=== PATIENT | female | born 1940 | race Caucasian/White ===

== ENCOUNTER 2017-07-11 02:29 | Inpatient (IN) | payer MEDICARE ==
[2017-07-11] MEDS ORDERED: Aspirin 300 MG Suppository ONE (02:44)
[2017-07-11 02:53] LABS: #Eosinphils 0.2 thou/uL (0.0-0.7); #Lymphocytes 1.3 thou/uL (1.20-3.40); #Monocytes 0.7 thou/uL (0.11-0.59); #Neutrophils 9.4 thou/uL (1.40-6.50); %Basophils 0.4 % (0.0-1.0); %Eosinophils 1.5 % (0.0-10.0); %Lymphocytes 10.8 % (21.0-51.0); %Monocytes 5.7 % (0.0-10.0); Hematocrit 40.5 % (36.0-47.0); Mean Platelet Volume 7.3 fL (7.4-10.4); Red Blood Cell (RBC) Count 4.24 mill/uL (4.20-5.40); White Blood Cell (WBC) Count 11.5 thou/uL (4.8-10.8)
[2017-07-11 02:59] LABS: PTT 26.4 SEC (22.9-36.1); Prothrombin Time 15.1 SEC (12.0-14.7)
[2017-07-11 03:19] LABS: Troponin I 0.015 ng/mL (< 0.028)
[2017-07-11 03:59] LABS: ALT (SGPT) 12 U/L (8-55); AST (SGOT) 19 U/L (5-34); Alkaline Phosphatase 86 U/L (40-150); Anion Gap 15 mmol/L (10-20); BUN (Urea Nitrogen) 14 mg/dL (9.8-20.1); Bilirubin, Total 0.4 mg/dL (0.2-1.2); CK (CPK) 274 U/L (29-168); Calc. Creatinine Clearance 0 mL/min (70-130); Calcium 11.2 mg/dL (7.8-10.44); Carbon Dioxide 25 mmol/L (23-31); Chloride 103 mmol/L (98-107); Estimated GFR-MDRD 57; Protein, Total 7.3 g/dL (6.0-8.3)
[2017-07-11 05:36] VITALS: BMI 28.0
[2017-07-11] MEDS ORDERED: Ondansetron HCl/PF 4 MG/2 ML Vial IVP PRN ×2 (05:39→09:04)
[2017-07-11] MEDS ORDERED: Acetaminophen 325 MG TAB PO PRN ×2 (05:39→09:04)
[2017-07-11] MEDS ORDERED: Ondansetron ODT 4 MG TAB SL PRN (05:39)
--- NOTE | 2017-07-11 08:28 | RAD ---
AP VIEW OF THE CHEST: INDICATION: History of desaturations and TIAs. FINDINGS: There is cardiomegaly with pulmonary vascular congestion. No airspace consolidation or pleural effu scott is evident. There is multilead AICD overlying the left chest wall. There is ACDF involving th e lower cervical spine. There is diffuse osteopenia. There is scattered degenerative change. IMPRESSION: Findings suggesting mild congestive heart failure. POS: H
--- NOTE | 2017-07-11 08:47 | CT ---
PRELIMINARY REPORT/[facility]/EMERGENCY AFTER HOURS PROCEDURE: EXAM: CT Head Without Intravenous Contrast CLINICAL HISTORY: 76 years old, female; AMS / memory loss; Confusion or disorientation; Patient HX: Possible stroke TECHNIQUE: Axial computed tomography images of the head/brain without intravenous contrast. COMPARISON: No relevant prior studies available. FINDINGS: Brain: Periventricular white matter areas of decreased density which are likely secondary to chronic ischemia from microvascular change. Diffuse cerebral atrophy. Bilateral basal ganglia calcification s. No mass effect or midline shift. No extra-axial fluid collection. No hemorrhage. Ventricles: Ventricular prominence in this patient with diffuse cerebral atrophy. Bones/joints: No fracture. Incomplete fusion of the posterior arch of C1 which is a normal congenita l variant. Soft tissues: Unremarkable. Vasculature: Arterial calcification. Sinuses: No significant disease of the paranasal sinuses. Mastoid air cells: No mastoiditis. IMPRESSION: 1. No acute intracranial findings. 2. Age-related periventricular white matter changes. 3. Diffuse cerebral atrophy. Thank you for allowing us to participate in the care of your patient. Dictated and Authenticated by: Jayesh Sanches MD 07/11/2017 3:04 AM Central Time ([place] \T\ [place]) FINAL REPORT NONCONTRAST CT OF THE BRAIN: INDICATIONS: Concern for possible stroke. COMPARISON: None. FINDINGS: No acute infarct, hemorrhage, or hydrocephalus is present. There is chronic small vessel white yoli er ischemic change. The septum pellucidum and third ventricle are midline. No definite acute infar ct, hemorrhage, or hydrocephalus is present. IMPRESSION: No definite acute intracranial abnormality demonstrated. I agree with the preliminary report provided. POS: [facility]
[2017-07-11] MEDS ORDERED: Aspirin 300 MG Suppository PR SCH ×2 (09:00→21:00)
[2017-07-11] MEDS ORDERED: Ondansetron ODT 4 MG TAB PO PRN (09:04)
[2017-07-11] MEDS ORDERED: Bisacodyl 10 MG SUPP PR PRN (09:04)
[2017-07-11] MEDS ORDERED: Senokot 8.6 MG TAB PO PRN (09:04)
[2017-07-11] MEDS ORDERED: Dextrose 5% in Water 1,000 ML IV PRN (09:08)
[2017-07-11] MEDS ORDERED: Insulin Regular 300 UNITS/3 ML VIAL SC PRN (09:08)
[2017-07-11] MEDS ORDERED: Dextrose 50% Abboject 50 ML SYRINGE SLOW IVP PRN (09:08)
[2017-07-11] MEDS ORDERED: Nitroglycerin 2% Ointment 1 INCH/1 GM Packet TOP PRN (09:09)
[2017-07-11] MEDS ORDERED: Labetalol HCl 100 MG/20 ML VIAL SLOW IVP PRN (09:09)
[2017-07-11] MEDS ORDERED: Diabetic Tussin 200 MG/10 ML UDCUP PO PRN (09:09)
[2017-07-11] MEDS ORDERED: Loratadine 10 MG TAB PO PRN (09:09)
[2017-07-11] MEDS ORDERED: Polyethylene Glycol 3350 17 GM Packet PO PRN (09:09)
[2017-07-11] MEDS ORDERED: Eucerin (Mineral Oil/Petrolatum,White) 30 gm Jar TOP PRN (09:09)
[2017-07-11] MEDS ORDERED: Dextrose 5 % And 0.9 % NaCl 1,000 ML IV SCH (09:15)
[2017-07-11] MEDS ORDERED: Furosemide 20 MG/2 ML VIAL SLOW IVP SCH (09:15)
[2017-07-11] MEDS ORDERED: Heparin 5,000 UNITS/ML VIAL SC SCH (09:15)
[2017-07-11] MEDS: Dextrose 5 % And 0.9 % NaCl 1,000 ML IV SCH (09:45)
--- NOTE | 2017-07-11 10:23 | HP ---
DATE OF ADMISSION: 07/11/2017 PRIMARY CARE PHYSICIAN: Miguel Ángel Dominguez M.D. PRIMARY CLASSROOM MONITOR: Rip Muñoz M.D. PRIMARY NEUROLOGIST: The patient was recently evaluated by Dr. Javier Cagle at [facility]. CHIEF COMPLAINT: New focal neurologic deficit. HISTORY OF PRESENT ILLNESS: The patient is a 76-year-old white female with paroxysmal atrial fibril lation, coronary artery disease, diabetes mellitus type 2, hypertension, hyperlipidemia, and status post AICD, presented to the emergency room with new onset of left-sided weakness. The patient currently resides at nursing facility. On 02/21/2017, patient was admitted to [facility] for TIA. CT angiogram of the head was unremarkable. CT angiogram of the neck showed possible 50% stenosis of the proximal left ICA. Echocardiogram showed normal left ventricular systolic function with moderate mitral regurgita tion. MRI could not be done due to pacemaker. Anticoagulation was recommended; however, she decide d to discuss with Dr. Muñoz as outpatient. Post-discharge, she was evaluated by Neurology, Dr. Jose Maria jalloh on 03/20/2017. Dr. Cagle recommended to continue aspirin 81 mg daily, which was started at [facility]. At this time, no information is available from the patient due to current cognition. History obtain ed from the ER record. I talked to the daughter, Ludivina over the phone who was unaware that the patie nt is in the hospital. The patient was brought into the Emergency Room around 02:30 a.m. earlier today with new motor defic it and facial weakness. She had flaccid weakness of the left upper and left lower extremity along w ith facial droop. Her eyes were deviated to the right. There was no bladder or bowel incontinence reported. No nausea, vomiting, headache or seizure reported. CT scan of the brain showed diffuse c erebral atrophy with age-related periventricular white matter changes. EKG showed paced rhythm. Sh candice received aspirin rectal in the emergency room. She failed swallowing evaluation in the ER. Her N IH score in the emergency room was 22. PAST MEDICAL HISTORY: Obtained from [facility] records. 1. Recent TIA as discussed above. 2. Paroxysmal atrial fibrillation, status post ablations. 3. Status post AICD. 4. Chronic back pain, followed by Pain Clinic at [facility]. 5. DJD. 6. Coronary artery disease with last cardiac catheterization at this facility in 2011. 7. Diabetes mellitus type 2 on oral hypoglycemics. 8. Hyperlipidemia. 9. Hypertension. 10. Hypothyroidism. PAST SURGICAL HISTORY: 1. Back surgery. 2. Breast biopsy. 3. Cardiac catheterization. 4. Colonoscopy. 5. Cardiac defibrillator placement. 6. Joint replacement. 7. Knee surgery. 8. Eye surgery. 9. Colposcopy. ALLERGIES: Patient is allergic to FENTANYL. FAMILY HISTORY: Positive for heart disease in both the parents. SOCIAL HISTORY: She resides at the nursing facility, ambulates with the help of a walker. No histo ry of smoking, alcohol or drug use. The patient currently resides at [facility]. She lost her 90 year old this February of 2017. HOME MEDICATIONS: Cannot be obtained from the patient due to current cognitive status. However, navjot kohler was discharged on the following medications from [facility]; 1. Aspirin 81 mg daily. 2. Carvedilol 6.25 mg b.i.d. 3. Cymbalta 30 mg daily. 4. Lasix 40 mg twice a day. 5. Levothyroxine 25 mcg daily. 6. Lisinopril 40 mg daily. 7. Metformin 1000 mg twice a day. 8. Potassium chloride 20 mEq twice a day. 9. Omeprazole 20 mg daily. REVIEW OF SYSTEMS: Cannot be obtained from the patient due to current cognitive status. PHYSICAL EXAMINATION: VITAL SIGNS: On ER arrival showed temperature 98.9, respirations 16, pulse 79, blood pressure of 14 6/90 with O2 saturation 89% on room air. She was placed on nonrebreather initially. She is current ly requiring oxygen at 4 liters. GENERAL: A 76-year-old female with flaccid left-sided weakness and right-sided gaze. There is left lower half of the face weakness. HEENT: As discussed above. Dry mucous membranes. NECK: Supple, no JVD, no neck stiffness. LUNGS: Showed bibasilar crackles with scattered rhonchi. HEART: S1, S2 present. Regular rate and rhythm, 2/6 systolic murmur over the mitral area. ABDOMEN: Soft, nontender, bowel sounds present. EXTREMITIES: Trace edema in bilateral lower extremities. NEUROLOGIC: As discussed above. Exam was limited due to current cognitive status. PSYCHIATRIC: The patient is alert with some intermittent confusion. Again, not much information av ailable. SKIN: Warm and dry. LYMPH NODES: No palpable lymph nodes in the neck. PERIPHERAL VASCULAR: Radial pulses palpable bilaterally. MUSCULOSKELETAL: No joint swelling or tenderness. LABORATORY DATA AND IMAGIN. CBC showed WBC 11.5, hemoglobin 13.3, hematocrit 40.5, and platelet 151. 2. INR 1.2. 3. Chemistries showed sodium 138, potassium 4.7, chloride 103, bicarbonate 25, BUN 14, creatinine 0 .95, glucose of 208. 4. Cardiac enzymes were normal. 5. EKG and chest x-ray by my review as discussed above. CT scan of the brain by my review as discu ssed above. IMPRESSION: 1. 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 Suspected embolic due to history of atrial fibrillation. 2. Recent transient ischemic attack requiring hospitalization at [facility], c urrently taking 81 mg aspirin. 3. Acute hypoxic respiratory failure, probably secondary to acute on chronic diastolic heart failur e. 4. Diabetes mellitus type 2. 5. Hypertension. 6. Hyperlipidemia. 7. Hypothyroidism. 8. Gastroesophageal reflux disease. 9. Anxiety and depression. 10. Chronic pain syndrome. 11. Chronic anemia. 12. Status post automatic implantable cardioverter defibrillator. 13. Chronic kidney disease, stage 3. 14. Chronic hypercalcemia. Her calcium 4 months ago was 10.7. PLAN: The patient will be monitored in the stroke unit. We will continue rectal aspirin that was s tarted earlier in the emergency room. We will get stroke workup. MRI not possible due to AICD. Ne urology and Cardiology consultation. We will resume other home medications once able to tolerate p. o. Stroke Team consult. We will repeat CT scan of the brain in a.m. CODE STATUS: FULL CODE. Surrogate decision maker is the daughter, Ludivina, phone number [phone]. Plan of care was discussed with the DPOA over the phone. She was unaware that [facility]. She stated understanding.
[2017-07-11 12:18] LABS: Anion Gap 16 mmol/L (10-20); BUN (Urea Nitrogen) 12 mg/dL (9.8-20.1); BUN/Creatinine Ratio 14.63; Calc. Creatinine Clearance 65 mL/min (70-130); Carbon Dioxide 23 mmol/L (23-31); Chloride 100 mmol/L (98-107); Cholesterol 156 mg/dl (< 200 Desired); Estimated GFR-MDRD 68; LDL Cholesterol, Calculated 101 mg/dL; Magnesium 1.4 mg/dL (1.6-2.6); Phosphorus 3.2 mg/dL (2.3-4.7)
[2017-07-11 12:31] LABS: Troponin I 0.061 ng/mL (< 0.028)
--- NOTE | 2017-07-11 12:37 | ULT ---
CAROTID DUPLEX ULTRASOUND: INDICATIONS: History of acute CVA. FINDINGS: There is mild atherosclerotic plaque involving the internal carotid arteries bilaterally. The peak systolic velocity of the right CCA was 48.1 cm per second and the left was 45.1 cm per seco nd. The peak systolic velocity of the right ICA was 39.7 cm per second and the left was 37.2 cm per seco nd. There is antegrade flow within both vertebral arteries. IMPRESSION: No hemodynamically significant stenosis. POS: [facility]
[2017-07-11] MEDS ORDERED: Magnesium Sulfate 4 GM in Sodium Chloride 0.9% 250 ML 250 ML IVPB SCH (12:45)
[2017-07-11] MEDS: Nitroglycerin 2% Ointment 1 INCH/1 GM Packet TOP SCH ×2 (12:51→23:05)
[2017-07-11] MEDS: Acetaminophen 650 MG Suppository PR PRN (12:51)
--- NOTE | 2017-07-11 13:38 | CON ---
DATE OF CONSULTATION: 07/11/2017 REASON FOR CONSULTATION: Recent cerebrovascular accident. PRIMARY ROTARY BAR OPERATOR: Dr. Rip Muñoz HISTORY OF PRESENT ILLNESS: Ms. Nolan is a 76-year-old woman who has undergone atrial fibrillation ablation x2 in the past. She has been off of Coumadin therapy. She recently presented with difficulty getting out of bed. She summoned 911. She was found to have left-sided weakness. She has no previous history of CVA. PAST MEDICAL HISTORY: Recent transient ischemic attack, paroxysmal atrial fibrillation status post ablation x2, AICD placement, DJD, chronic back discomfort, diabetes mellitus, hypertension, hyperlipidemia, colonoscopy, joint replacement, knee surgery, eye surgery. ALLERGIES: FENTANYL. SOCIAL HISTORY: No current tobacco or alcohol use. HOME MEDICATIONS: Aspirin, carvedilol, Cymbalta, Lasix, levothyroxine, lisinopril, metformin, potassium, and omeprazole. REVIEW OF SYSTEMS: Ten-point review of systems is reviewed and as above, otherwise negative. PHYSICAL EXAMINATION: VITAL SIGNS: Blood pressure 172/115, pulse 101, temperature 97.8. GENERAL: Patient is a pleasant female who is in no acute distress. The patient appears her stated age. NEUROLOGIC: The patient is alert and oriented times 3 with no focal neurologic deficits. HEENT: Sclerae without icterus. Mouth has moist mucous membranes with normal pallor. NECK: No JVD. Carotid upstroke brisk. No bruits bilaterally. LUNGS: Clear to auscultation with unlabored respirations. BACK: No scoliosis or kyphosis. CARDIAC: Regular rate and rhythm with normal S1 and S2. No S3 or S4 noted. No significant rubs, murmurs, thrills, or gallops noted throughout the precordium. PMI is not displaced. There is no parasternal heave. ABDOMEN: Soft, nontender, nondistended. No peritoneal signs present. No hepatosplenomegaly. No abnormal striae. EXTREMITIES: 2+ femoral and 2+ dorsalis pedis pulses. No cyanosis, clubbing, or edema. SKIN: No gross abnormalities. ICD interrogation negative for episodes of atrial fibrillation. IMPRESSION: 1. Recent cerebrovascular accident. 2. History of paroxysmal atrial fibrillation, status post ablation. RECOMMENDATIONS: Ms. Victorias etiology likely is from the left atrial appendage. There may have been stunning or standstill of the left atrial appendage after ablation in the past. She has had a recent TIA followed by a CVA. She would likely benefit from anticoagulation therapy. We will discuss with Neurology on anticoagulation treatment. Otherwise, I have no further recommendations. ANABELL
--- NOTE | 2017-07-11 14:22 | CT ---
NONCONTRAST CT OF THE BRAIN: INDICATION: CVA. COMPARISON: Prior exam dated 07/11/17. FINDINGS: Since the comparison examination, there has been loss of the reyez-white differentiation involving th e right insular cortex, right frontal lobe cortex, portions of the anterior right temporal lobe, and anterior right parietal lobe in a right MCA distribution consistent with changes of acute infarct. No acute intracranial hemorrhage is evident. Septum pellucidum and 3rd ventricle are midline. Mil d chronic small-vessel white matter ischemic change is again noted. Scattered vascular calcificatio ns involving the intracranial vasculature appear similar. The skull and extracranial soft tissues a re unremarkable. IMPRESSION: 1. Interval development of loss of the reyez-white differentiation involving the right middle cerebr al artery distribution consistent with a large right middle cerebral artery infarct. This involves portions of the posterior and lateral right frontal lobe, right insular cortex, anterior right tempo ral lobe, and anterior right parietal lobe. 2. Findings were called to Dr. Lim at 1:30 p.m. on 07/11/17. CODE CR POS: [facility]
[2017-07-11 15:55] LABS: Troponin I 0.093 ng/mL (< 0.028)
[2017-07-11] MEDS: manNITOL 20% 250 ML IVPB SCH (20:30)
[2017-07-11] MEDS: Docusate 100 MG CAP PO SCH (21:42)
[2017-07-11] MEDS: Atorvastatin Calcium 20 MG TAB PO SCH (21:42)
[2017-07-11] MEDS: Famotidine/PF 20 mg/2ml Vial SLOW IVP SCH (21:42)
[2017-07-11] MEDS: Famotidine 20 MG TAB PO SCH (21:45)
[2017-07-11] MEDS: Heparin 5,000 UNITS/ML VIAL SC SCH (21:48)
[2017-07-12] MEDS: manNITOL 20% 250 ML IVPB SCH ×2 (04:52→12:08)
[2017-07-12] MEDS: Nitroglycerin 2% Ointment 1 INCH/1 GM Packet TOP SCH (04:55)
--- NOTE | 2017-07-12 05:07 | CON ---
DATE OF CONSULTATION: 07/11/2017 REFERRING PROVIDER: Agusitn Lim MD REASON FOR CONSULTATION: Left hemiparesis, dysarthria. HISTORY OF PRESENT ILLNESS: Ms. Nolan is a pleasant 76-year-old female, who has been co nsulted for evaluation of left hemiparesis and dysarthria, is obtained from patient's medical chart as well as patient's daughter who was present at bedside. Patient has a history of hypertension, di abetes, coronary artery disease, paroxysmal atrial fibrillation, status post AICD placement. She re sides at the nursing facility and over there she was noted to have sudden onset of left-sided weakne ss on last night, which prompted them to bring her to the [place] [facility], was more than 4 -1/2 hours. So, for this reason TPA was not given. Apparently, she has a history of TIA in February of this year. She was admitted to the [facility]. It was felt that her episode of trans ient ischemic attacks, likely secondary to paroxysmal atrial fibrillation. She was offered anticoag ulation therapy; however, she at that time had refused and thus she was started on aspirin 81 mg jeannie ly for secondary stroke prevention. She had done well since that time until last night, but she was noted to be weak on her left side and thus she was brought to the [place] [facility]. Accor ding to the nurse, the patient has noted gradual decline in her neurological status over the past 12 hours. She is now more lethargic and has a gaze deviation toward the right side. She is also flac kelly in the left upper and left lower extremity. PAST MEDICAL HISTORY: Significant for hypertension, hyperlipidemia, diabetes, coronary artery disea se, paroxysmal atrial fibrillation, status post ablations and recent TIA and chronic back pain, dege nerative joint disease, and hypothyroidism. PAST SURGICAL HISTORY: Significant for back surgery, breast biopsy, cardiac catheterization, colono scopy, AICD placement, joint replacement, knee surgery, eye surgery. CURRENT MEDICATIONS: Please review MAR. ALLERGIES: Include FENTANYL. FAMILY HISTORY: Significant for heart disease in both parents. SOCIAL HISTORY: She is currently residing at the custodial facility. She ambulates with the hel p of a walker. She does not smoke cigarettes, drink alcohol or use illicit drugs. REVIEW OF SYSTEMS: Positive for headache on the right frontal temporal region. She denies chest pa in, palpitation, difficulty with breathing. PHYSICAL EXAMINATION: VITAL SIGNS: Blood pressure of 144/86, pulse of 88, temperature of 97.5, respirations of 18, O2 sat s of 97% on room air. GENERAL: Somewhat lethargic appearing, female, in no apparent distress. RESPIRATORY: Clear to auscultation bilaterally. CARDIOVASCULAR: Regular rate and rhythm. NEUROLOGIC: Mental status: The patient is lethargic appearing. She is able to respond to verbal s timuli and able to follow some simple commands. Speech and language mild to moderate dysarthric spe ech. Cranial nerves: Pupils are 3 mm and reactive. She has a right gaze deviation with a left hem ineglect. She does not blink to threat on the left side. There is left facial droop noted. Tongue and uvula could not be assessed. Motor exam showed flaccid left upper and left lower extremity; le ft upper and left lower extremity is 0/5, right upper and right lower extremity is 5/5. Sensory: S ensation is absent in the left upper and left lower extremity. Gait and Romberg coordination could not be tested. LABORATORY DATA: Reviewed; which included CBC, coag panel, CMP, CPK, CK-MB, troponin, BNP, and lipi d profile, which is significant for WBC of 11.5, PT of 15.1, INR of 1.2, PTT of 26.4. Sodium of 135 , glucose of 184, magnesium of 1.4, CK-MB of 10.4, troponin of 0.093. BNP of 852.7, total cholester ol of 156, LDL of 101, HDL of 43, otherwise unremarkable. IMAGING STUDIES: CT head without contrast done earlier in the day today was reviewed, which showed hypodensity involving the right middle cerebral artery. This involves portions of the posterior and lateral right frontal lobe, right insular cortex and anterior right temporal lobe and anterior righ t parietal lobe. IMPRESSION: 1. Large right middle cerebral artery distribution ischemic infarct. 2. Left hemiparesis, due to #1. 3. Cerebral edema secondary to #1. ASSESSMENT AND PLAN: Ms. Nolan is a pleasant 76-year-old female with multiple medical p roblems, who presented with the acute onset of left hemiparesis. She has noted gradual decline sinc e being admitted to the hospital where she now has a gaze deviation towards the right with the left hemineglect and left hemiparesis. Her CT scan does show large area of right middle cerebral artery distribution ischemic infarct. At this time, I would recommend holding off anticoagulation therapy due to high risk for bleeding with a large area of the stroke involved. I would recommend continuin g using aspirin 81 mg daily for secondary stroke prevention. I would recommend obtaining CT head wi thout contrast on tomorrow morning. I have started on mannitol 50 grams IV q.8 hours total of 3 dos es due to her becoming more lethargic and worsening of her symptoms which suggest cerebellar edema. I had a long discussion with the patient's daughter as well as patient's another daughter who was p resent over the phone. I have explained them the extent of the stroke as well as prognosis. I have explained that the risk of edema peaks at 72 hours; this can result in worsening of symptoms includ ing brain herniation, which can affect breathing, heart rate and blood pressure and alertness and co nsciousness. I have explained that given the severity of the stroke, anticoagulation therapy at thi s point should be avoided unless for 48 hours, I have explained that her prognosis is guarded to poo r at this time. I have also discussed with them about DNR status. Daughter mentioned that they jonh l discuss among themselves to decide whether to make her DNR. I have spent approximately 30 minutes of total visit time for above discussion and counseling. Thank you for the consultation.
[2017-07-12 05:23] LABS: #Basophils 0.1 thou/uL (0.0-0.2); #Monocytes 0.8 thou/uL (0.11-0.59); #Neutrophils 9.4 thou/uL (1.40-6.50); %Basophils 0.5 % (0.0-1.0); %Eosinophils 0.2 % (0.0-10.0); %Lymphocytes 9.2 % (21.0-51.0); Hematocrit 45.3 % (36.0-47.0); Mean Platelet Volume 7.5 fL (7.4-10.4); Red Blood Cell (RBC) Count 4.75 mill/uL (4.20-5.40); White Blood Cell (WBC) Count 11.3 thou/uL (4.8-10.8)
[2017-07-12 05:49] LABS: Anion Gap 18 mmol/L (10-20); BUN (Urea Nitrogen) 14 mg/dL (9.8-20.1); BUN/Creatinine Ratio 15.73; Calc. Creatinine Clearance 60 mL/min (70-130); Carbon Dioxide 22 mmol/L (23-31); Chloride 101 mmol/L (98-107); Estimated GFR-MDRD 62; Magnesium 2.3 mg/dL (1.6-2.6); Phosphorus 3.3 mg/dL (2.3-4.7)
--- NOTE | 2017-07-12 09:06 | PRG ---
DATE OF SERVICE: 07/12/2017 Ms. Nolan's status is unchanged. She recently had a repeat CT scan that did show a large infarct involving the right middle cerebral distribution consistent with right middle cerebral artery infarc t involving the posterior and lateral right frontal lobe. PHYSICAL EXAMINATION: VITAL SIGNS: Blood pressure 187/96, pulse 93, temperature 98.3. LUNGS: Clear to auscultation. CARDIAC: Regular rate and rhythm. ABDOMEN: Soft, nontender, nondistended. EXTREMITIES: No edema. NEURO: Marked weakness to the left upper and left lower extremity with left facial droop.. IMPRESSION: 1. Large cerebrovascular accident. 2. History of paroxysmal atrial fibrillation, status post ablation. RECOMMENDATIONS: At this point, we will defer anticoagulation therapy to Neuro. There is concern f or progression of a large right middle cerebral artery conversion to a hemorrhage. May need to wait several days prior to starting anticoagulation therapy. Again, this is likely related to atrial fi brillation and atrial stunning versus atrial appendage standstill. The patient also developed a non sustained VT overnight which is likely related to recent infarct. We will continue to monitor close ly.
[2017-07-12] MEDS: Famotidine/PF 20 mg/2ml Vial SLOW IVP SCH ×2 (09:08→20:10)
[2017-07-12] MEDS: Acetaminophen 650 MG Suppository PR PRN (09:08)
[2017-07-12] MEDS: Famotidine 20 MG TAB PO SCH ×2 (09:09→19:52)
[2017-07-12] MEDS: Docusate 100 MG CAP PO SCH ×2 (09:09→19:52)
[2017-07-12] MEDS: Heparin 5,000 UNITS/ML VIAL SC SCH (09:09)
[2017-07-12] MEDS: Dextrose 5 % And 0.9 % NaCl 1,000 ML IV SCH (11:33)
[2017-07-12] MEDS: Insulin Regular 300 UNITS/3 ML VIAL SC PRN (11:33)
[2017-07-12] MEDS ORDERED: Labetalol HCl 100 MG/20 ML VIAL SLOW IVP PRN (12:27)
[2017-07-12] MEDS ORDERED: Metoprolol Tartrate 5 MG/5 ML VIAL IVP SCH ×2 (12:30→14:00)
--- NOTE | 2017-07-12 14:21 | CT ---
CT BRAIN WITHOUT CONTRAST: Date: 07/12/17 HISTORY: Worsening, acute CVA. FINDINGS: Comparison made with exam of previous day. There has been interval increase in size of the acute right MCA infarction with hemorrhagic transfor mation since the previous day's exam. There is increased edema and mass effect on the right lateral ventricle. No midline shift is seen. IMPRESSION: Interval progression and hemorrhagic conversion of the large right MCA infarction since the previous day. This study was interpreted in consultation with Dr. Alley Pearce (neuroradiologist), who concurs. Discussed over the telephone with Dr. Agustin Lim at 1310 hours. CODE CR. POS: [facility]
[2017-07-12] MEDS: Metoprolol Tartrate 5 MG/5 ML VIAL IVP SCH ×2 (16:07→23:21)
--- NOTE | 2017-07-12 17:44 | PDOC.PN ---
- Subjective Encounter Start Date: 07/12/17 Encounter Start Time: 11:00 Patient seen and examined. Rt sided headache. Somnolent No overnight events - Objective Resuscitation Status: Resuscitation Status DNR:Do Not Resuscitate MAR Reviewed: Yes Vital Signs & Weight: Vital Signs (12 hours) Temp Pulse Resp BP Pulse Ox 07/12/17 16:40 95 07/12/17 15:49 96.4 F L 103 H 16 166/110 H 92 L 07/12/17 11:51 98.7 F 98 18 172/106 H 94 L 07/12/17 10:53 96 20 94 L 07/12/17 08:50 98.0 F 95 16 95 07/12/17 08:40 98.0 F 95 16 156/90 H 96 07/12/17 06:59 95 07/12/17 06:58 92 16 95 Weight Admit Weight 158 lb 8 oz Weight 158 lb 8 oz I&O: 07/11/17 07/12/17 07/13/17 06:59 06:59 06:59 Intake Total 1626 Output Total 1825 Balance -199 Result Diagrams: 07/12/17 04:30 07/12/17 04:30 Additional Labs: Accuchecks 07/12/17 07/12/17 07/11/17 17:17 11:01 20:34 POC Glucose 166 H 203 H 170 H Radiology Reviewed by me: Yes (CT brain - Hemorrhagic conversion) EKG Reviewed by me: Yes (Tele SR, NSVT earlier) Phys Exam - Physical Examination Constitutional: NAD Respiratory: no wheezing, no rales, no rhonchi Symmetrical, Dec AE at bases Cardiovascular: RRR, no rub no heaves/pulsations Gastrointestinal: soft, non-tender, no distention, positive bowel sounds Musculoskeletal: no edema Neuro - Left sided flaccid weakness, facial droop Psychiatric: A&O x 3 Deviation from normal: Somnolent. Responds to verbal commands Dx/Plan - Plan cont current plan of care, plan discussed w/ family (they stated understanding) , DVT proph w/SCDs IMPRESSION: 1. 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 Suspected embolic due to history of atrial fibrillation. 2. Recent transient ischemic attack. 3. Acute hypoxic respiratory failure secondary to acute on chronic diastolic heart failure. 4. Diabetes mellitus type 2. on sliding scale. 5. Hypertension. 6. Hyperlipidemia. 7. Hypothyroidism. 8. Gastroesophageal reflux disease. 9. Anxiety and depression. 10. Chronic pain syndrome. 11. Chronic anemia. 12. Status post automatic implantable cardioverter defibrillator. 13. Chronic kidney disease, stage 3. 14. Chronic hypercalcemia. PLAN: * Consult Neurosurgery * On Mannitol * DC Heparin SQ and ASA due to hemorrhagic conversion * AM labs * Cont to monitor * Cardiology/Neurology following Review of Systems - Review of Systems Cardiovascular: negative: Chest Pain, Palpitations, Orthopnea, Paroxysmal Noc. Dyspnea, Edema, Light Headedness, Other Gastrointestinal: negative: Nausea, Vomiting, Abdominal Pain, Diarrhea, Constipation, Melena, Hematochezia, Other - Medications/Allergies Allergies/Adverse Reactions: Allergies Allergy/AdvReac Type Severity Reaction Status Date / Time No Known Allergies Allergy Verified 07/11/17 06:21 Medications: Current Medications Acetaminophen (Tylenol) 650 mg KY Q4H PRN PRN Reason: Headache/Fever or Pain Last Admin: 07/12/17 09:08 Dose: 650 mg Acetaminophen (Tylenol) 650 mg PO Q4H PRN PRN Reason: Headache/Fever or Pain Albuterol/Ipratropium (Duoneb) 3 ml NEB [id number] [facility] Last Admin: 07/12/17 14:45 Dose: Not Given Albuterol/Ipratropium (Duoneb) 3 ml NEB [id number] PRN PRN Reason: SOB &/or Wheezing Atorvastatin Calcium (Lipitor) 20 mg PO HS [facility] Last Admin: 07/11/17 21:42 Dose: 20 mg Bisacodyl (Dulcolax) 10 mg KY Q24H PRN PRN Reason: Constipation Dextrose/Water (Dextrose 50%) 25 gm SLOW IVP PRN PRN PRN Reason: Hypoglycemia Docusate Sodium (Colace) 100 mg PO BID [facility] Last Admin: 07/12/17 09:09 Dose: Not Given Enalaprilat (Vasotec) 1.25 mg SLOW IVP BID [facility] Famotidine (Pepcid) 20 mg PO BID [facility] Last Admin: 07/12/17 09:09 Dose: Not Given Famotidine (Pepcid) 20 mg SLOW IVP Q12HR [facility] Last Admin: 07/12/17 09:08 Dose: 20 mg Glucagon (Glucagon) 1 mg IM PRN PRN PRN Reason: Hypoglycemia Guaifenesin (Robitussin Sf) 200 mg PO Q4H PRN PRN Reason: Cough Hydralazine HCl (Apresoline) 10 mg SLOW IVP Q4H PRN PRN Reason: SBP GREATER THAN 160 Dextrose/Water (D5w) 1,000 mls @ 0 mls/hr IV .Q0M PRN; As Directed PRN Reason: Hypoglycemia Dextrose/Sodium Chloride (D5 0.9% Ns) 1,000 mls @ 30 mls/hr IV .Q24H [facility] Last Admin: 07/12/17 11:33 Dose: 1,000 mls Insulin Human Regular (Humulin R) 0 units SC .MILD SLIDING SCALE PRN PRN Reason: Mild Correctional Scale Last Admin: 07/12/17 11:33 Dose: 3 unit Insulin Human Regular (Humulin R) 0 units SC .BEDTIME SLIDING SC PRN PRN Reason: Bedtime Correctional Scale Labetalol HCl (Normodyne) 10 mg SLOW IVP Q4H PRN PRN Reason: Systolic BP > 160 Loratadine (Claritin) 10 mg PO DAILYPRN PRN PRN Reason: Sinus Symptoms Metoprolol Tartrate (Lopressor) 5 mg IVP Q6HR [facility] Last Admin: 07/12/17 16:07 Dose: 5 mg Mineral Oil/White Petrolatum (Eucerin Cream) 0 gm TOP BIDPRN PRN PRN Reason: Dry Skin Nitroglycerin (Nitro-Bid 2% Ointment) 0.5 inch TOP Q8H PRN PRN Reason: Sbp Greater Than 190 Ondansetron HCl (Zofran Odt) 4 mg PO Q6H PRN PRN Reason: Nausea/Vomiting Ondansetron HCl (Zofran) 4 mg IVP Q6H PRN PRN Reason: Nausea/Vomiting Polyethylene Glycol (Miralax) 17 gm PO DAILYPRN PRN PRN Reason: Constipation Senna (Senokot) 2 tab PO HSPRN PRN PRN Reason: Constipation Sodium Chloride (Flush - Normal Saline) 10 ml IVF Q12HR [facility] Last Admin: 07/12/17 09:09 Dose: Not Given Sodium Chloride (Flush - Normal Saline) 10 ml IVF PRN PRN PRN Reason: Saline Flush
[2017-07-12] MEDS: Atorvastatin Calcium 20 MG TAB PO SCH (20:09)
[2017-07-12] MEDS: Enalaprilat Dihydrate 1.25 MG/ML VIAL SLOW IVP SCH (20:09)
[2017-07-13] MEDS: Labetalol HCl 100 MG/20 ML VIAL SLOW IVP PRN ×2 (02:23→17:08)
[2017-07-13] MEDS: Metoprolol Tartrate 5 MG/5 ML VIAL IVP SCH ×3 (04:34→18:51)
[2017-07-13] MEDS: Insulin Regular 300 UNITS/3 ML VIAL SC PRN ×3 (04:55→17:02)
[2017-07-13 05:25] LABS: #Monocytes 0.9 thou/uL (0.11-0.59); #Neutrophils 10.3 thou/uL (1.40-6.50); %Basophils 0.2 % (0.0-1.0); %Eosinophils 0.2 % (0.0-10.0); %Lymphocytes 8.4 % (21.0-51.0); %Monocytes 7.2 % (0.0-10.0); Hematocrit 42.9 % (36.0-47.0); Mean Platelet Volume 7.5 fL (7.4-10.4); Red Blood Cell (RBC) Count 4.53 mill/uL (4.20-5.40); White Blood Cell (WBC) Count 12.2 thou/uL (4.8-10.8)
[2017-07-13 06:34] LABS: Anion Gap 16 mmol/L (10-20); BUN (Urea Nitrogen) 15 mg/dL (9.8-20.1); BUN/Creatinine Ratio 16.13; Calc. Creatinine Clearance 56 mL/min (70-130); Carbon Dioxide 25 mmol/L (23-31); Chloride 102 mmol/L (98-107); Estimated GFR-MDRD 58; Magnesium 1.8 mg/dL (1.6-2.6)
--- NOTE | 2017-07-13 07:08 | CON ---
DATE OF CONSULTATION: 07/11/2017 DATE OF ADMISSION: 07/11/2017 HISTORY OF PRESENT ILLNESS: Ms. Nolan is a 76-year-old female who I saw in her room this morning. She presented yesterday to the [facility] with motor deficits and facial weak nesses on the left side. She has flaccid weakness of the left upper and lower extremity along with facial droop. Her eyes were deviated to the right and there is no bladder or bowel incontinence rep orted. She denies any nausea, vomiting, headache, or seizure. CT of the brain revealed diffuse cer ebral atrophy with age-related periventricular white matter changes. EKG showed paced rhythm. She received aspirin rectally in the emergency department. She failed a swallowing evaluation in the ER . Her NIH score in the emergency department was 22. She has a history of TIA in 02/2017, which she presented at [facility]. She was admitted to the stroke floor under the Medicine Service. To day, they got a repeat CT scan of the brain that showed an interval increase in the size of acute ri ght MCA infarction with hemorrhagic transformation since previous day's exam. She had increased lyssa ma and mass effect on the right lateral ventricle and no midline shift is seen. On exam, she does a nswer my questions appropriately. Her cranial nerves are intact. Her tongue deviates to the left. She is flaccid and has no sensation in the left upper extremity and left lower extremity; however, she has 4/5 strength in the right upper and lower extremity. She is able to follow my commands. Ne urosurgery was consulted because of the small hemorrhagic findings on CT scan. PAST MEDICAL HISTORY: TIA, paroxysmal atrial fibrillation, status post ablations, status post AICD, chronic back pain, degenerative disk disease, coronary artery disease with last cardiac catheteriza tion at [facility] in 2011; diabetes mellitus type 2 on oral hypoglycemics, hyperlipidemia, hypertension, hyperthyroidism. PAST SURGICAL HISTORY: Includes back surgery, breast biopsy, cardiac catheterization, colonoscopy, cardiac defibrillator placement, joint replacement, knee surgery, eye surgery, colonoscopy. ALLERGIES: Include FENTANYL. FAMILY HISTORY: Positive for heart disease in both parents. SOCIAL HISTORY: She resides at the nursing facility, ambulates with the help of a walker and has no history of smoking, alcohol, or drug abuse. She currently resides at [facility]. She recently lost her 90-year-old in 02/2017. HOME MEDICATIONS: 1. Aspirin 81 mg daily. 2. Carvedilol 6.25 mg p.o. b.i.d. 3. Cymbalta 30 mg daily. 4. Lasix 40 mg twice a day. 5. Levothyroxine 25 mcg daily. 6. Lisinopril 40 mg daily. 7. Metformin 1000 mg twice a day. 9. Potassium chloride 20 mEq twice a day. 10. Omeprazole 20 mg daily. REVIEW OF SYSTEMS: Cannot be obtained because the patient is somewhat confused. PHYSICAL EXAMINATION: VITAL SIGNS: Reviewed. latest vital signs, systolic blood pressures in the 170s. GENERAL: She is A and O x3. She is a 76-year-old female with flaccid left-sided weakness in the up per and lower extremities, right-sided gaze, and left lower half of the face is weak. HEENT: Normocephalic, atraumatic. Hearing intact. Moist mucous membranes. Eyes: Her pupils are equal and reactive to light. Extraocular muscles, she has a right gaze. Sclerae are white, anicter ic. NECK: Supple, no JVD, no neck stiffness. RESPIRATORY: The patient has bilateral symmetric chest rise, appears to be in no shortness of breat h. CARDIOVASCULAR: Regular rate and rhythm, normal S1 and S2 heart sounds, is paced, and has 2/6 systo lic murmur over the atrial area. No distal cyanosis or clubbing noted. EXTREMITIES: The patient has left-sided flaccid weakness in her left upper extremity and lower extr emity. She has 4/5 strength on the upper right extremity and lower right extremity. NEUROLOGIC: The patient is responsive to my questions appropriately. She has a GCS of 14. She mov es her right extremities to command, answers my questions appropriately. Her cranial nerves are int act. LABORATORY DATA: Shows INR of 1.2. Cardiac enzymes were normal. ASSESSMENT: Ms. Nolan is a 76-year-old female who is a DNR status and status post right-sided mid dle cerebral artery infarct with hemorrhagic transformation. PLAN: We will continue to do neuro checks overnight. If there is a major neurologic change, please contact the Neurosurgical Service, we will do a repeat CT scan of her brain in the morning and revi ew that for further recommendations. If there are any further questions, please feel free to contac t Neurosurgery.
[2017-07-13] MEDS ORDERED: Potassium Phosphate 15 MMOL in Sodium Chloride 0.9% 250 ML 250 ML IVPB SCH (07:30)
[2017-07-13] MEDS: Famotidine 20 MG TAB PO SCH (07:35)
[2017-07-13] MEDS: Docusate 100 MG CAP PO SCH ×2 (09:53→21:47)
[2017-07-13] MEDS: Famotidine/PF 20 mg/2ml Vial SLOW IVP SCH ×2 (09:55→21:22)
[2017-07-13] MEDS: Dextrose 5 % And 0.9 % NaCl 1,000 ML IV SCH (09:55)
[2017-07-13] MEDS: Enalaprilat Dihydrate 1.25 MG/ML VIAL SLOW IVP SCH ×2 (10:10→21:42)
--- NOTE | 2017-07-13 10:56 | PRG ---
DATE OF SERVICE: 07/13/2017 I personally interviewed and examined the patient and spoke with the daughter, reviewed imaging keri rds and agree with documentation of Brian Robb PA-C, dated 07/12/2017. SUBJECTIVE: Briefly, Ms. Nancy Nolan seen in [facility] on the with new left-sided weakness. She suffered a right middle cerebral artery infarct. Follow up CT imaging yesterday showed maturation of the infarct with potential hemorrhagic conversion. [place] to the mass effect on the brain, Neurosurgery was consulted to consider craniectomy. Ms. Nolan's vitals look stable. On examination, she wakes up to stimulus and answers questions wi th one or two words. She moves her right side well and follows commands on the right. She has a fl accid plegia on the left side. I have spent a long time talking to Ms. Nolan's daughter. She indicated to me that her mother wou ld not want a decompressive craniectomy, intubation, feeding tube or any aggressive measures to surv lili this stroke. She reiterated multiple times during our conversation. I told her I would follow up with the results of the CT images later today and give her those results in the morning and I wou ld check on her mother in the morning. If she remains adamant, neurosurgical intervention will be w anted. Then, we will sign off tomorrow.
--- NOTE | 2017-07-13 11:50 | CT ---
CT BRAIN: 07/13/2017 COMPARISON: 07/12/2017 FINDINGS: CT brain demonstrates a large area of hypodensity and mixed heterogenic density in the right posteri or frontal lobe, right insular cortex, and right temporal lobe. There appear to be areas of hyperde nsity within this, concerning for intraparenchymal hemorrhage in the large right MCA stroke. The ex tent of the stroke has not significantly changed. There does appear to be some increasing edema and approximately 4 mm of midline shift, from right to left. IMPRESSION: Large right middle cerebral artery distribution area of stroke with concern for intraparenchymal hem orrhage, There is midline shift from right to left. POS: [facility]
[2017-07-13] MEDS ORDERED: manNITOL 20% 250 ML IVPB SCH (14:00)
[2017-07-13] MEDS: Nitroglycerin 2% Ointment 1 INCH/1 GM Packet TOP SCH ×2 (14:19→21:19)
--- NOTE | 2017-07-13 14:34 | PDOC.PN ---
- Subjective Encounter Start Date: 07/13/17 Encounter Start Time: 14:00 Patient seen and examined. Somnolent. Was able to communicate earlier. No overnight events - Objective Resuscitation Status: Resuscitation Status DNR:Do Not Resuscitate MAR Reviewed: Yes Vital Signs & Weight: Vital Signs (12 hours) Temp Pulse Pulse Pulse Resp BP BP 07/13/17 11:47 98.2 F 93 18 07/13/17 11:15 85 95 154/99 H 07/13/17 10:10 178/106 H 07/13/17 08:54 98 20 07/13/17 08:00 98 F 98 20 07/13/17 07:58 98 F 93 20 07/13/17 04:46 26 H 07/13/17 04:42 93 07/13/17 04:00 98.3 F 91 28 H BP BP BP Pulse Ox 07/13/17 11:47 155/56 H 93 L 07/13/17 11:15 161/104 H 07/13/17 10:10 07/13/17 08:54 94 L 07/13/17 08:00 94 L 07/13/17 07:58 176/96 H 92 L 07/13/17 04:46 180/98 H 07/13/17 04:42 172/94 H 07/13/17 04:00 180/88 H 93 L Weight Admit Weight 158 lb 8 oz Weight 154 lb 8 oz I&O: 07/12/17 07/13/17 07/14/17 06:59 06:59 06:59 Intake Total 1626 650 Output Total 1825 2650 Balance -199 -1999 Result Diagrams: 07/13/17 04:32 07/13/17 04:32 Additional Labs: Accuchecks 07/13/17 07/13/17 07/13/17 11:03 09:32 04:54 POC Glucose 187 H 220 H 238 H 07/13/17 07/12/17 07/12/17 00:18 21:40 17:17 POC Glucose 229 H 231 H 166 H Radiology Reviewed by me: Yes (CT brain - midline shift 4mm) EKG Reviewed by me: Yes (Tele SR) Phys Exam - Physical Examination Lethargic, was agitated earlier Respiratory: no wheezing, no rales Cardiovascular: RRR, no rub Gastrointestinal: soft, non-tender Musculoskeletal: no edema Dx/Plan - Plan DVT proph w/SCDs IMPRESSION: 1. 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 Suspected embolic due to history of atrial fibrillation. 2. Recent transient ischemic attack. started on ASA 3. Acute hypoxic respiratory failure secondary to acute on chronic diastolic heart failure. 4. Diabetes mellitus type 2. on sliding scale. 5. Hypertension. 6. Hyperlipidemia. 7. Hypothyroidism. 8. Gastroesophageal reflux disease. 9. Anxiety and depression. 10. Chronic pain syndrome. 11. Chronic anemia. 12. Status post automatic implantable cardioverter defibrillator. 13. Chronic kidney disease, stage 3. 14. Chronic hypercalcemia. 15. Hypokalemia/hypophosphatemia 16. NSVT PLAN: * Neurosurgery input appreciated * One dose Mannitol - confirmed with neurosurgery * Not on Heparin SQ and ASA due to hemorrhagic conversion * AM labs * Cont to monitor * Repeat CT brain in AM per family request * Replace electrolytes * Add Nitro patch. Cont IV Metoprolol * Increase IV Vasotec dose Review of Systems - Review of Systems Other: Cannot obtain due to current mentation - Medications/Allergies Allergies/Adverse Reactions: Allergies Allergy/AdvReac Type Severity Reaction Status Date / Time No Known Allergies Allergy Verified 07/11/17 06:21 Medications: Current Medications Acetaminophen (Tylenol) 650 mg KY Q4H PRN PRN Reason: Headache/Fever or Pain Last Admin: 07/12/17 09:08 Dose: 650 mg Acetaminophen (Tylenol) 650 mg PO Q4H PRN PRN Reason: Headache/Fever or Pain Albuterol/Ipratropium (Duoneb) 3 ml NEB [id number] [facility] Last Admin: 07/13/17 12:30 Dose: Not Given Albuterol/Ipratropium (Duoneb) 3 ml NEB [id number] PRN PRN Reason: SOB &/or Wheezing Atorvastatin Calcium (Lipitor) 20 mg PO HS [facility] Last Admin: 07/12/17 20:09 Dose: Not Given Bisacodyl (Dulcolax) 10 mg KY Q24H PRN PRN Reason: Constipation Dextrose/Water (Dextrose 50%) 25 gm SLOW IVP PRN PRN PRN Reason: Hypoglycemia Docusate Sodium (Colace) 100 mg PO BID [facility] Last Admin: 07/13/17 09:53 Dose: Not Given Enalaprilat (Vasotec) 1.25 mg SLOW IVP BID [facility] Last Admin: 07/13/17 10:10 Dose: 1.25 mg Famotidine (Pepcid) 20 mg PO BID [facility] Last Admin: 07/13/17 07:35 Dose: Not Given Famotidine (Pepcid) 20 mg SLOW IVP Q12HR [facility] Last Admin: 07/13/17 09:55 Dose: 20 mg Glucagon (Glucagon) 1 mg IM PRN PRN PRN Reason: Hypoglycemia Guaifenesin (Robitussin Sf) 200 mg PO Q4H PRN PRN Reason: Cough Hydralazine HCl (Apresoline) 10 mg SLOW IVP Q4H PRN PRN Reason: SBP GREATER THAN 160 Last Admin: 07/13/17 00:23 Dose: 10 mg Dextrose/Water (D5w) 1,000 mls @ 0 mls/hr IV .Q0M PRN; As Directed PRN Reason: Hypoglycemia Dextrose/Sodium Chloride (D5 0.9% Ns) 1,000 mls @ 30 mls/hr IV .Q24H [facility] Last Admin: 07/13/17 09:55 Dose: 1,000 mls Mannitol (Mannitol 20%) 250 mls @ 250 mls/hr IVPB 1400 [facility] Stop: 07/13/17 14:59 Insulin Human Regular (Humulin R) 0 units SC .MILD SLIDING SCALE PRN PRN Reason: Mild Correctional Scale Last Admin: 07/13/17 09:55 Dose: 3 unit Insulin Human Regular (Humulin R) 0 units SC .BEDTIME SLIDING SC PRN PRN Reason: Bedtime Correctional Scale Labetalol HCl (Normodyne) 10 mg SLOW IVP Q4H PRN PRN Reason: Systolic BP > 160 Last Admin: 07/13/17 02:23 Dose: 10 mg Loratadine (Claritin) 10 mg PO DAILYPRN PRN PRN Reason: Sinus Symptoms Metoprolol Tartrate (Lopressor) 5 mg IVP Q6HR [facility] Last Admin: 07/13/17 12:39 Dose: 5 mg Mineral Oil/White Petrolatum (Eucerin Cream) 0 gm TOP BIDPRN PRN PRN Reason: Dry Skin Nitroglycerin (Nitro-Bid 2% Ointment) 0.5 inch TOP Q8H PRN PRN Reason: Sbp Greater Than 190 Nitroglycerin (Nitro-Bid 2% Ointment) 0.5 inch TOP Q8HR [facility] Last Admin: 07/13/17 14:19 Dose: 0.5 inch Ondansetron HCl (Zofran Odt) 4 mg PO Q6H PRN PRN Reason: Nausea/Vomiting Ondansetron HCl (Zofran) 4 mg IVP Q6H PRN PRN Reason: Nausea/Vomiting Polyethylene Glycol (Miralax) 17 gm PO DAILYPRN PRN PRN Reason: Constipation Senna (Senokot) 2 tab PO HSPRN PRN PRN Reason: Constipation Sodium Chloride (Flush - Normal Saline) 10 ml IVF Q12HR [facility] Last Admin: 07/13/17 07:35 Dose: Not Given Sodium Chloride (Flush - Normal Saline) 10 ml IVF PRN PRN PRN Reason: Saline Flush
--- NOTE | 2017-07-13 15:31 | PDOC.CTH ---
Cardiology Progress Note - Subjective She remains minimally responsive. - Objective Vital Signs Temp Pulse Pulse Pulse Resp BP BP 07/13/17 14:36 96 20 07/13/17 11:47 98.2 F 93 18 07/13/17 11:15 85 95 154/99 H 07/13/17 10:10 178/106 H 07/13/17 08:54 98 20 07/13/17 08:00 98 F 98 20 07/13/17 07:58 98 F 93 20 07/13/17 04:46 26 H 07/13/17 04:42 93 07/13/17 04:00 98.3 F 91 28 H BP BP BP Pulse Ox 07/13/17 14:36 94 L 07/13/17 11:47 155/56 H 93 L 07/13/17 11:15 161/104 H 07/13/17 10:10 07/13/17 08:54 94 L 07/13/17 08:00 94 L 07/13/17 07:58 176/96 H 92 L 07/13/17 04:46 180/98 H 07/13/17 04:42 172/94 H 07/13/17 04:00 180/88 H 93 L Admit Weight 158 lb 8 oz Weight 154 lb 8 oz 07/12/17 07/13/17 07/14/17 06:59 06:59 06:59 Intake Total 1626 650 Output Total 1825 2650 Balance -199 - Physical Examination General/Neuro: NAD Neck: no JVD present Lungs: unlabored respirations Heart: RRR Abdomen: NT/ND Extremities: other: (no edema.) - Telemetry Telemetry Rhythm: NSR - Labs Result Diagrams: 07/13/17 04:32 07/13/17 04:32 Troponin/CKMB CK-MB (CK-2) 10.4 ng/mL (0-6.6) H* 07/11/17 15:19 Troponin I 0.093 ng/mL (< 0.028) H 07/11/17 15:19 - Assessment/Plan 1. Acute CVA 2. Paroxysmal afib 3. Non sustained VT 4. Hypokalemia. PLAN: - Continue current meds. - Replace K - No anticoagulation until deemed safe from neuro perspective.
[2017-07-13] MEDS: Atorvastatin Calcium 20 MG TAB PO SCH (21:47)
[2017-07-14] MEDS: Metoprolol Tartrate 5 MG/5 ML VIAL IVP SCH ×4 (00:29→18:28)
[2017-07-14 06:09] LABS: Anion Gap 13 mmol/L (10-20); BUN (Urea Nitrogen) 27 mg/dL (9.8-20.1); BUN/Creatinine Ratio 27.27; Calc. Creatinine Clearance 53 mL/min (70-130); Carbon Dioxide 25 mmol/L (23-31); Chloride 109 mmol/L (98-107); Estimated GFR-MDRD 54
[2017-07-14] MEDS: Nitroglycerin 2% Ointment 1 INCH/1 GM Packet TOP SCH ×2 (06:25→13:37)
[2017-07-14] MEDS: Insulin Regular 300 UNITS/3 ML VIAL SC PRN (06:26)
--- NOTE | 2017-07-14 09:00 | PDOC.PN ---
- Subjective Encounter Start Date: 07/14/17 Encounter Start Time: 08:05 Subjective: Alert, responsive, confused in no distress. - Objective Resuscitation Status: Resuscitation Status DNR:Do Not Resuscitate Vital Signs & Weight: Vital Signs (12 hours) Temp Pulse Resp BP BP Pulse Ox 07/14/17 07:20 92 L 07/14/17 07:19 71 24 H 92 L 07/14/17 04:00 97.3 F L 96 20 171/109 H 92 L 07/14/17 03:00 88 22 H 93 L 07/13/17 23:55 99.4 F 100 20 173/103 H 93 L 07/13/17 22:48 97 20 94 L 07/13/17 21:42 185/109 H Weight Admit Weight 158 lb 8 oz Weight 154 lb 8 oz I&O: 07/13/17 07/14/17 07/15/17 06:59 06:59 06:59 Intake Total 650 1200 Output Total 2650 Balance -1999 1200 Result Diagrams: 07/13/17 04:32 07/14/17 05:28 Additional Labs: Accuchecks 07/14/17 07/14/17 07/13/17 06:02 02:08 20:42 POC Glucose 202 H 234 H 189 H 07/13/17 07/13/17 07/13/17 16:56 11:03 09:32 POC Glucose 192 H 187 H 220 H Phys Exam - Physical Examination HEENT: sclera anicteric Neck: no JVD Respiratory: clear to auscultation bilateral Cardiovascular: RRR Gastrointestinal: soft, non-tender, no distention Musculoskeletal: no edema (+left hemiplegia..) Dx/Plan (1) CVA (cerebral vascular accident) Code(s): I63.9 - CEREBRAL INFARCTION, UNSPECIFIED Status: Acute Comment: Right sided infarct with hemorrhagic conversion.. f/u with neurology, neurosurgery. (2) Diabetes Code(s): E11.9 - TYPE 2 DIABETES MELLITUS WITHOUT COMPLICATIONS Status: Acute Plan: continue sliding scale.. (3) HTN (hypertension) Code(s): I10 - ESSENTIAL (PRIMARY) HYPERTENSION Status: Acute Plan: Maintain BP around 160/90 Comment: BP is elevated. (4) Hypokalemia Code(s): E87.6 - HYPOKALEMIA Status: Acute Plan: supplemented. Comment: mild.. (5) Hypercalcemia Code(s): E83.52 - HYPERCALCEMIA Status: Acute Plan: check pth.. Comment: Right sided infarct with hemorrhagic conversion. (6) CKD (chronic kidney disease) Code(s): N18.9 - CHRONIC KIDNEY DISEASE, UNSPECIFIED Status: Acute Plan: f/u chemistry. Comment: serum crat higher. ?effect of mannitol. - Plan -: Family wishes that patient be on hospice.. -: Consult hospice. * .
--- NOTE | 2017-07-14 09:09 | PRG ---
DATE OF SERVICE: 07/14/2017 NEUROSURGERY PROGRESS NOTE DATE OF SERVICE: I saw Ms. Nolan in her hospital room this morning. Her other daughter is in the room today. I met with the first daughter yesterday and the second one is here today. She reitera kyle to me that Ms. Nolan would never want a feeding tube placed or aggressive intervention if she cannot be as independent as she was before. PHYSICAL EXAMINATION: On examination, Ms. Nolan wakes to stimulus. She says a word or two. She moves right side to command. The left is flaccid, paralysis. IMAGING: A CT scan done yesterday does not show any increase in the size of the infarct or hemorrha gic conversion. There is still some local mass effect and a small amount of midline shift. I told Ms. Nolan's daughter that I would not recommend surgical intervention currently. If she de teriorates to the point where she is no longer localizing, she needs intubation for airway protectio n, then surgical intervention might be warranted. However, 4 days out from her stroke and therefore I do not think Neurosurgery will actually be necessary and the family has expressed that they do no t want it. The Neurosurgery team is going to sign off for now, but you can call us back with milton garcia should she go downhill and the family change her mind.
[2017-07-14] MEDS: Docusate 100 MG CAP PO SCH (09:41)
[2017-07-14] MEDS ORDERED: Potassium Chloride 10 MEQ in Dextrose 5 % And 0.9 % NaCl 1,000 ML IV SCH (10:30)
[2017-07-14] MEDS: Enalaprilat Dihydrate 1.25 MG/ML VIAL SLOW IVP SCH (11:07)
[2017-07-14] MEDS: Famotidine/PF 20 mg/2ml Vial SLOW IVP SCH (11:09)
[2017-07-14] MEDS: Dextrose 5 % And 0.9 % NaCl 1,000 ML IV SCH (11:21)
[2017-07-14 12:46] VITALS: TEMP 98.2
--- NOTE | 2017-07-14 15:41 | PDOC.CTH ---
Cardiology Progress Note - Subjective Remains non responsive. - Objective Vital Signs Temp Pulse Resp BP BP Pulse Ox 07/14/17 12:00 98.2 F 86 20 178/91 H 93 L 07/14/17 11:07 185/109 H 07/14/17 08:30 98.9 F 83 26 H 100 07/14/17 08:20 98.9 F 83 26 H 177/98 H 100 07/14/17 07:20 92 L 07/14/17 07:19 71 24 H 92 L 07/14/17 04:00 97.3 F L 96 20 171/109 H 92 L Admit Weight 158 lb 8 oz Weight 154 lb 8 oz 07/13/17 07/14/17 07/15/17 06:59 06:59 06:59 Intake Total 650 1200 Output Total 2650 Balance -2000 1200 - Physical Examination General/Neuro: other: (non responsive. ) Neck: no JVD present Lungs: CTA, unlabored respirations Heart: RRR Abdomen: NT/ND Extremities: + edema B (1+) - Telemetry Telemetry Rhythm: NSR - Labs Result Diagrams: 07/13/17 04:32 07/14/17 05:28 Troponin/CKMB CK-MB (CK-2) 10.4 ng/mL (0-6.6) H* 07/11/17 15:19 Troponin I 0.093 ng/mL (< 0.028) H 07/11/17 15:19 - Assessment/Plan 1. Acute CVA 2. Paroxysmal afib 3. Non sustained VT 4. Hypokalemia. PLAN: - Continue current meds. - Replace K - No anticoagulation until deemed safe from neuro perspective.
--- NOTE | 2017-07-14 15:59 | CT ---
PRELIMINARY REPORT/[facility]/EMERGENCY AFTER HOURS PROCEDURE: EXAM: CT Head Without Intravenous Contrast CLINICAL HISTORY: 76 years old, female; Condition or disease; Other: Acute CVA; Patient HX: F/u acute CVA; Additional info: *pt constantly moving during scan TECHNIQUE: Axial computed tomography images of the head/brain without intravenous contrast. COMPARISON: CT Brain WO Con 07/13/2017 9:19:04 AM FINDINGS: Mildly limited due to motion artifact Right-sided MCA hemorrhagic infarction is grossly stable. Mass effect on the right lateral ventricle with minimal shift of the left is grossly stable. Ventricular size may have slightly increased. The basal and suprasellar cisterns are patent. The calvarium is intact. The paranasal sinuses and mastoid cavi ties are grossly clear IMPRESSION: Question slight interval increase in ventricular size Otherwise, grossly stable noncontrast CT appearance of the brain Thank you for allowing us to participate in the care of your patient. Dictated and Authenticated by: Janes Fried MD 07/14/2017 5:11 AM Central Time ([place] \T\ [place]) FINAL REPORT CT BRAIN: HISTORY: Followup altered mental status. FINDINGS: Noncontrast-enhanced CT images of the brain are obtained. Comparison is made to previous exam from 07/13/17. Final report. Preliminary exam was performed by [facility]. I concur with the dictation from [facility]. There is a large right MCA stroke with secondar y hemorrhage grossly stable. Mild [id number] midline shift is seen. No other significant interv al change is seen. POS: [facility]
--- NOTE | 2017-07-14 17:09 | PDOC.EVN ---
Event Note - Event Note Event Note: Chart reviewed and pt seen at the request of Dr. Olivarez. Discussed with Dr. Olivarez and nursing staff. Pt will be discharged to hospice by Dr. Olivarez. OOH DNR signed.
[2017-07-14 17:32] VITALS: BP 177/90
--- NOTE | 2017-07-16 10:52 | DIS ---
DATE OF ADMISSION: 07/11/2017 DATE OF DISCHARGE: 07/14/2017 ADMITTING DIAGNOSIS: New focal neurological deficits. SECONDARY DIAGNOSES: Diabetes mellitus and hypertension. DISCHARGE DIAGNOSTIC: Primary diagnostic cerebrovascular accident. Secondary diagnostic hypokalemia, hypocalcemia, diabetes mellitus, hypertension, chronic kidney dise ase. LOCAL BULK DRIVER: Dr. Dorman of Neurology for seizure. Head CT without contrast, chest x-ray, EEG, carotid Doppler. COURSE OF HOSPITALIZATION: The patient did not respond to management. Her condition somewhat deter iorated. She was made DNR and she was discharged home on 07/14/2017 under hospice care.
== END 2017-07-14 19:23 | disposition hospice, inpatient (51) | DRG 64 ==
LOC: ERS 02:29 → 2SE 03:45
PROVIDERS: ADMIT Internal Medicine; ATTEND Internal Medicine
DX: I63.9 Cerebral infarction, unspecified (principal); J96.01 Acute respiratory failure with hypoxia; I50.33 Acute on chronic diastolic (congestive) heart failure; G93.6 Cerebral edema; I47.2 Ventricular tachycardia; N18.3 Chronic kidney disease, stage 3 (moderate); I13.0 Hypertensive heart and chronic kidney disease with heart failure and stage 1 through stage 4 chronic kidney disease, or unspecified chronic kidney disease; G81.94 Hemiplegia, unspecified affecting left nondominant side; E11.9 Type 2 diabetes mellitus without complications; E78.5 Hyperlipidemia, unspecified; K21.9 Gastro-esophageal reflux disease without esophagitis; E87.6 Hypokalemia; I48.0 Paroxysmal atrial fibrillation; E83.52 Hypercalcemia; E03.9 Hypothyroidism, unspecified; F32.9 Major depressive disorder, single episode, unspecified; E83.39 Other disorders of phosphorus metabolism; F41.9 Anxiety disorder, unspecified; G89.4 Chronic pain syndrome; Z66 Do not resuscitate; Z79.82 Long term (current) use of aspirin; Z95.810 Presence of automatic (implantable) cardiac defibrillator; Z88.5 Allergy status to narcotic agent; Z82.49 Family history of ischemic heart disease and other diseases of the circulatory system
CPT/HCPCS: 36415; 36416; 70450; 71010; 80053; 80061; 80069; 82550; 82553; 83735; 83880; 84484; 85025; 85610; 85730; 90471; 90732; 93005; 93306; 93880; 94640; 94760; A4216; G0009; G8978-GP-CM; G8979-GP-CL; G8987-GO-CM; G8988-GO-CK; G8996-GN-CK; G8997-GN-CJ; J0360; J1644; J1815; J1940; J3475; J7050; J7620; S0028